=== PATIENT | female | born 1955 | race Caucasian/White ===

== ENCOUNTER 2017-06-03 11:52 | Day surgery (SDC) | payer BC ==
[2017-06-03] MEDS ORDERED: PROPOFOL 10 MG/ML VIAL IV ONE (11:53)
[2017-06-03] MEDS ORDERED: LIDOCAINE 2% MDV (20MG/ML) 20ML VIAL IV ONE (11:53)
--- NOTE | 2017-06-06 09:10 | Operative Note ---
DATE OF SURGERY: 06/03/2017 SURGEON: Dawna Venegas MD OPERATION: COLONOSCOPY. INDICATIONS: This is a 62-year-old female with history of colon polyps who presented for surveillance colonoscopy. POSTOPERATIVE DIAGNOSES: 1. Left-sided colonic diverticula. 2. Grade 1 internal hemorrhoids. ANESTHESIA: Sedation is per Anesthesia. Pulse oximetry was monitored throughout the procedure to maintain O2 saturation of 90% or greater. Supplemental oxygen was administered via nasal cannula. Cardiac and vital signs were monitored throughout the duration of the procedure, and they were stable. The procedure of colonoscopy and risks and alternatives of the procedure, including the risk of bleeding and perforation, among others, were explained to the patient who voiced understanding and agreed to have the procedure done. Physical examination was performed, and the patient was found stable for sedation. PROCEDURE: The patient was placed in the left lateral position. Sedation was initiated. A digital rectal exam was performed and showed some mild external hemorrhoids with no palpable rectal masses. An Olympus PCF-180AL colonoscope was then inserted into the rectum under direct visualization. It was advanced to the cecum without difficulty. The ileocecal valve and appendiceal orifice were identified and photographed. The colonic mucosa was carefully examined upon introduction of the colonoscope. There were scattered diverticula noted in the sigmoid and descending colon. There were no other lesions noted. The colonoscope was then withdrawn while carefully examining the colonic mucosal surfaces. No other lesions were noted. In the rectum, retroflexion was performed and grade 1 internal hemorrhoids were noted. The colonoscope was then withdrawn and the procedure was terminated. The patient tolerated the procedure well without any immediate complications. She remained with stable vital signs and was transferred to the recovery room. RECOMMENDATIONS: 1. The patient should be on a high-fiber diet. 2. The patient is to have a repeat colonoscopy for surveillance in 5 years. Thank you for allowing me to participate in the care of your patient. CC: Dr. Kassy NUGENT
== END 2017-06-03 14:24 | disposition home or self-care (01) ==
LOC: HOP 11:52
PROVIDERS: ATTEND Internal Medicine Gastroenterology
DX: Z12.11 Encounter for screening for malignant neoplasm of colon (principal); Z86.010 Personal history of colon polyps; K57.30 Diverticulosis of large intestine without perforation or abscess without bleeding; K64.0 First degree hemorrhoids; I10 Essential (primary) hypertension; J44.9 Chronic obstructive pulmonary disease, unspecified; E78.00 Pure hypercholesterolemia, unspecified
CPT/HCPCS: 00812; G0105

== ENCOUNTER 2018-03-06 13:30 | Inpatient (IN) | payer BC ==
[2018-03-16] MEDS ORDERED: CELECOXIB 100 MG CAPSULE PO ONE (06:00)
[2018-03-16] MEDS ORDERED: FAMOTIDINE 20MG TABLET PO ONE (06:00)
[2018-03-16] MEDS ORDERED: MECLIZINE 25 MG TABLET PO ONE (06:00)
[2018-03-16] MEDS ORDERED: ACETAMINOPHEN 1,000 MG/100 ML BTL IV ONE (06:00)
[2018-03-16] MEDS ORDERED: CEFAZOLIN 2 Gram 2 GM/50 ML BAG IVPB ONE (06:00)
[2018-03-16] MEDS ORDERED: METOCLOPRAMIDE 10 MG TABLET PO ONE (06:00)
[2018-03-16] MEDS ORDERED: OXYCODONE HCL/APAP 5MG/325MG TABLET PO PRN ×2 (12:56)
[2018-03-16] MEDS ORDERED: HYDROCODONE/APAP 5/325MG TABLET PO PRN (12:56)
[2018-03-16] MEDS ORDERED: SENNOSIDES/DOCUSATE SODIUM UD CAPSULE PO PRN (13:00)
[2018-03-16] MEDS ORDERED: ONDANSETRON HCL IV 4 MG/2 ML VIAL IVP PRN (13:00)
[2018-03-16] MEDS ORDERED: METOCLOPRAMIDE HCL 10 MG/2 ML VIAL IVP PRN (13:00)
[2018-03-16] MEDS ORDERED: HYDROMORPHONE HCL 2 MG/ML VIAL IV PRN (13:00)
[2018-03-16] MEDS ORDERED: DIPHENHYDRAMINE HCL 25 MG CAPSULE PO PRN (13:00)
[2018-03-16] MEDS ORDERED: TRAMADOL HCL 50 MG TABLET PO PRN ×2 (13:00)
[2018-03-16] MEDS ORDERED: AL HYDROX/MAG HYDROX 30ML UD PO PRN (13:00)
[2018-03-16] MEDS ORDERED: ZOLPIDEM TARTRATE 5 MG TABLET PO PRN (13:00)
[2018-03-16] MEDS ORDERED: MAGNESIUM HYDROXIDE 30 ML UDC PO PRN (13:00)
[2018-03-16] MEDS ORDERED: PATIENT OWN MED: PROAIR HFA INH PRN (13:04)
[2018-03-16] MEDS ORDERED: RINGERS SOLUTION,LACTATED 1,000 ML IV PRN (13:09)
[2018-03-16] MEDS: RINGERS SOLUTION,LACTATED 1,000 ML IV SCH ×2 (13:34→19:00)
[2018-03-16] MEDS ORDERED: HYDROMORPHONE HCL 2 MG/ML VIAL IV ONE (13:38)
[2018-03-16] MEDS ORDERED: PROPOFOL 10 MG/ML VIAL IV ONE (15:14)
[2018-03-16] MEDS ORDERED: SUGAMMADEX SODIUM 200 MG/2 ML VIAL IV ONE (15:14)
[2018-03-16] MEDS ORDERED: ROCURONIUM BROMIDE 50MG/5ML VIAL IV ONE (15:14)
[2018-03-16] MEDS ORDERED: FENTANYL PF 0.25MG/5ML AMPUL IV ONE (15:14)
[2018-03-16] MEDS ORDERED: KETOROLAC 30 MG/ML VIAL IVP ONE (15:14)
[2018-03-16] MEDS ORDERED: SEVOFLURANE 250 ML INH ONE (15:14)
[2018-03-16] MEDS ORDERED: ONDANSETRON HCL IV 4 MG/2 ML VIAL IVP ONE (15:14)
[2018-03-16] MEDS ORDERED: LIDOCAINE 2% MDV (20MG/ML) 20ML VIAL IV ONE (15:14)
[2018-03-16] MEDS ORDERED: MIDAZOLAM HCL 2MG/2ML VIAL IV ONE (15:14)
[2018-03-16] MEDS: DELZICOL PO SCH ×2 (16:35→22:07)
--- NOTE | 2018-03-16 17:20 | Rehab Evaluation ---
Patient Information - Patient Information Diagnosis: OA L hip Ordered Treatment: PT Evaluate and Treat Status: Initial Evaluation Surgery: Yes Date of Surgery: 03/16/18 History: Detail (Pt with gradual degeneration of L hip.) Past Medical/Surgical Hx: PAST MEDICAL/SURGICAL HISTORY Past Surgical History left breast bx benign RTHA appendectomy; tonsillectomy; right ankle orif; breast bx x 2; cardiac cath with stents. total left hip arthroplasty PMH - Respiratory Hx Respiratory Disorders Yes Hx Bronchitis Yes Hx Chronic Obstructive Yes: well controlled on inhalers Pulmonary Disease (COPD) Hx Dyspnea Yes: with weather change and exertion Hx Pneumonia Yes Hx of SOB Yes: " PMH - Cardiovascular Hx Cardiovascular Disorders Yes Hx Abnormal EKG Yes Hx Cardiac Catheterization Yes: with stents Hx Edema Yes: on diuretic Hx Heart Attack Yes: 2007 Hx Hypertension Yes: on meds good control Exercise Tolerance Good PMH - Neuro Hx Neurological Disorders No PMH - GI Hx Gastrointestinal Disorders Yes Hx Gastroesophageal Reflux Yes: occassionally uses gaviscon Hx Rectal Bleeding Yes Comment: colitis on meds good control on this PMH - Hx Genitourinary Disorders No Hx Age of Menopause 44 PMH - Endocrine Hx Endocrine Disorders No PMH - Musculoskeletal Hx Musculoskeletal Disorders Yes Hx Arthritis Yes: osteoarthritis left hip PMH - Psych Hx Psychiatric Problems No PMH - Hematology/Oncology Hx Hematology/Oncology Yes Disorders Hx Anemia Yes: borderline Social History: Detail (Pt lives in 2 story home with daughter. Pt has 3 steps to enter with no hand rails. Pt has a tub/shower with grab bars and a standard height toilet. Pt currently own RW and crutches.) Precautions: [place], Fall - Time With Patient Total Time Spent With Patient (Min): 40 Treatment Procedures: Detail (PT eval completed, bed mobility, transfers, gait, and pt education.) Subjective Information - Subjective Information Per Patient (Pt asleep upon arrival, but awakened easily and cooperative for therapy.) Objective Data - Pain Pain Present: Yes Pain Intensity: 4 Pain Scale Used: Numeric (1 - 10) - Mental Status Patient Orientation: Oriented x3 - Visual Perception Appears within normal limits for therapeutic activities - ROM Not within normal limits (Decreased L hip flexion ROM, within [place] precautions.) - Strength/Tone Not within normal limits (Decreased L hip flexion strength, grossly 3-/5.) - Coordination Appears within normal limits for therapeutic activities - Bed Mobility Needs Assist (Pt performed sup<>sit using sit-pivot technique, bed rails and min A for LE movement. Verbal cues given for technique.) - Transfers Needs Assist (Pt performed sit<>stand using RW with bed raised and min A for steadying and safety. Verbal cues given for L hip precautions and technique.) - Balance Balance Sitting: Good Balance Standing: Good - Sensation Intact (Intact for light touch) - Gait Detail (Pt amb 50' with RW and min A for steadying and safety. Pt amb with step- to pattern, decreased B step length, increased reliance on UEs, and decreased weight shift to LLE. Pt reported feeling lightheaded during ambulation, resolved with short standing rest break.) - Special Tests No Therapy Assessment - Therapy Assessment Detail (Pt's impairments are consistent with surgical procedure. Pt currently requiring assistance with transfers, bed mobility and ambulation. Pt educated on L hip precautions (no flexion past 90 degrees, no hip adduction, and no hip IR).) Patient Education - Patient Education Teaching Topic: Exercise/Activity, Precautions Response: Verbalize Understanding Teaching Method: Discussion Teaching Recipient: Patient Barriers To Learning: None Problem List - Problem List Physical Therapy Problem List: Detail (Impaired bed mobility, transfers and gait.) Goals - Goals Physical Therapy Goals: 1) Pt will perform bed mobility independently. 2) Pt will perform transfers with least restrictive assistive device, independent. 3 ) Pt will ambulate 100' with least restrictive assistive device, w/supervision. 4) Pt will ascend/descend 3 steps with 1 UE support and min A for safety. Prognosis - Prognosis Good Plan - Plan Physical Therapy Plan: Pt will be seen by PT 1-2 times tomorrow to address current impairments to facilitate safe return to home.
[2018-03-16] MEDS: CEFAZOLIN 2 Gram 2 GM/50 ML BAG IVPB SCH (18:19)
[2018-03-16] MEDS ORDERED: PATIENT OWN MED: ATORVASTATIN 80 MG PO SCH (22:00)
[2018-03-16] MEDS: ASPIRIN 325 MG TAB ENTERIC-COATED PO SCH (22:04)
[2018-03-16] MEDS: HYDROCODONE/APAP 5/325MG TABLET PO PRN (22:06)
[2018-03-16] MEDS: SYMBICORT INH SCH (22:08)
[2018-03-17] MEDS: CEFAZOLIN 2 Gram 2 GM/50 ML BAG IVPB SCH ×2 (01:56→09:53)
[2018-03-17] MEDS: HYDROCODONE/APAP 5/325MG TABLET PO PRN ×3 (04:16→13:17)
[2018-03-17 06:23] LABS: HEMATOCRIT 31.7 % (35.0-47.0); HEMOGLOBIN 10.1 gm/dl (11.6-16.0); MEAN CORPUSCULAR HGB CONC 31.9 g/dl (32-36); MEAN PLATELET VOLUME 9.5 fl (7.4-10.4); PLATELET COUNT 205 K/uL (130-400); RED BLOOD COUNT 2.71 M/uL (3.80-5.40); RED CELL DISTRIBUTION WIDTH 13.2 % (11.5-14.5); WHITE BLOOD COUNT W/O DIFF 7.1 K/uL (4.2-12.2)
[2018-03-17 06:29] LABS: MEAN CORPUSCULAR HEMOGLOBIN 37.2 pg (27-33)
[2018-03-17] MEDS ORDERED: TRANEXAMIC ACID 1,000 MG/10 ML ML IV ONE (09:08)
[2018-03-17] MEDS: DELZICOL PO SCH (09:30)
[2018-03-17] MEDS: ASPIRIN 325 MG TAB ENTERIC-COATED PO SCH (09:33)
[2018-03-17] MEDS: SYMBICORT INH SCH (09:36)
[2018-03-17] MEDS ORDERED: PATIENT OWN MED: METOPROLOL SUCCINATE 50 MG PO SCH (10:00)
[2018-03-17] MEDS ORDERED: PATIENT OWN MED: POTASSIUM 20 MEQ PO SCH (10:00)
[2018-03-17] MEDS ORDERED: CELECOXIB 100 MG CAPSULE PO SCH (10:00)
[2018-03-17] MEDS ORDERED: FUROSEMIDE 20 MG TABLET PO SCH (10:00)
--- NOTE | 2018-03-17 10:30 | Operative Note ---
DATE OF SURGERY: 03/16/2018 Surgeon: Michael Call DO PREOPERATIVE DIAGNOSIS: Primary osteoarthritis of the left hip. POSTOPERATIVE DIAGNOSIS: Primary osteoarthritis of the left hip. OPERATION: Left total hip arthroplasty. DESCRIPTION OF PROCEDURE: This 62-year-old female was taken to the operating room and placed in the supine position on the operating room table. General anesthetic was administered. She was then placed in the right lateral decubitus position bolstered perpendicular to the floor. The left hip was prepped with Hibiclens and draped in the usual sterile fashion. All scrub personnel wore personal isolation suits. A lateral hip incision was made dissecting down through the skin and subcutaneous tissue. Hemostasis was obtained with the electrocautery. The tensor was split in line with the skin incision. The gluteus darell also split to expose the short rotators. Self-retaining hip retractor was placed. We then dissected off the short rotators to expose the hip. We then placed Steinmann pin retractors, one superiorly and one posterosuperiorly and one posteroinferiorly for excellent exposure to the acetabulum. We made a damian on the greater trochanter, and this was measured to the proximal pin to determine the length of the hip. This was restored to anatomic length at the completion of the procedure. The hip was dislocated and the neck amputated. The cobra retractor was placed anteriorly. Osteophytes were removed from the anterior and inferior aspects of the hip. We then began reaming with a size 48 mm reamer reaming up to a 50 in 1 mm increments to the base of the condyloid notch. We then placed a size [address] at approximately 40-45 degrees of abduction and approximately 20 degrees of anteversion. Trial liner was subsequently placed. We then directed our attention to the proximal femur. A box osteotome was used to cut the proximal femur, and reamer was placed down the shaft and then using an alternating ream/broach technique, we started with a size 5 and then went up to a size 7 which as seen to be the appropriate size. I did not feel that I would be able to pass a size 8 broach in her femur. The calcar reamer was used after the size 6 broach was countersunk. We then trialed off the size 7 broach and first a 0 and subsequently a 2.5 mm head was used to restore anatomic length to the femur. She was then taken through range of motion and this was found to be satisfactory with flexion to 110 easily, internal rotation to about 70, wide abduction and external rotation with no instability being identified. The hip was then again dislocated and the trial components were removed. The wound copiously irrigated with pulse lavage and lactated Ringer's solution. An X3 liner was placed, 36 mm inside diameter. This was followed by the insertion of the femoral component and a 36 mm +2.5 Biolox head, and the hip was then again reduced and taken through range of motion and found to be stable. The wound was copiously irrigated with pulse lavage and lactated Ringer's solution. The capsule and short rotators were reapproximated to the posterior aspect of the greater trochanter through drill holes with #5 Ethibond suture. A drain was placed through a separate stab incision. The tensor and gluteus were closed with a #2 Vicryl, subcutaneous tissue closed with 0 Vicryl, and the skin was stapled. Sterile dressings were applied and the patient taken to the recovery room in satisfactory condition. GROSS PATHOLOGY: This patient demonstrated advanced osteoarthritis of the hip on the left with osteophytes present inferior which were removed as well as anteriorly. The femur had somewhat of a medial-lateral, anterior-posterior mismatch. I was afraid to put a size 8 femoral component in the femur for fear of fracture. The size 7 fit tightly and was felt to be satisfactory. FINAL COMPONENTS INSERTED: Елена size 7 collared Secur-Fit femur, a size 50 Trident cup, a 36 mm inside diameter X3 liner, and a 36 mm +2.5 Biolox head was used. CC: DO TIMA BlankD
--- NOTE | 2018-03-17 10:37 | Rehab Evaluation ---
Patient Information - Patient Information Diagnosis: OA L hip Ordered Treatment: OT Evaluate and Treat Status: Initial Evaluation Surgery: Yes Date of Surgery: 03/16/18 (left total hip arthroplasty) History: Detail (Pt with gradual degeneration of L hip.) Past Medical/Surgical Hx: PAST MEDICAL/SURGICAL HISTORY Past Surgical History left breast bx benign RTHA appendectomy; tonsillectomy; right ankle orif; breast bx x 2; cardiac cath with stents. total left hip arthroplasty PMH - Respiratory Hx Respiratory Disorders Yes Hx Bronchitis Yes Hx Chronic Obstructive Yes: well controlled on inhalers Pulmonary Disease (COPD) Hx Dyspnea Yes: with weather change and exertion Hx Pneumonia Yes Hx of SOB Yes: " PMH - Cardiovascular Hx Cardiovascular Disorders Yes Hx Abnormal EKG Yes Hx Cardiac Catheterization Yes: with stents Hx Edema Yes: on diuretic Hx Heart Attack Yes: 2007 Hx Hypertension Yes: on meds good control Exercise Tolerance Good PMH - Neuro Hx Neurological Disorders No PMH - GI Hx Gastrointestinal Disorders Yes Hx Gastroesophageal Reflux Yes: occassionally uses gaviscon Hx Rectal Bleeding Yes Comment: colitis on meds good control on this PMH - Hx Genitourinary Disorders No Hx Age of Menopause 44 PMH - Endocrine Hx Endocrine Disorders No PMH - Musculoskeletal Hx Musculoskeletal Disorders Yes Hx Arthritis Yes: osteoarthritis left hip PMH - Psych Hx Psychiatric Problems No PMH - Hematology/Oncology Hx Hematology/Oncology Yes Disorders Hx Anemia Yes: borderline Social History: Detail (Pt lives in 2 story home with daughter, son in law and their children. She stays on the main level. Pt has 3 steps to enter with no hand rails. Pt has a tub/shower combination with grab bars and a tub seat and a standard height toilet with a riser. Pt currently own a 2 wheeled walker, apron cleaner and crutches.) Precautions: [place], Fall, Other (total hip precautions) - Time With Patient Total Time Spent With Patient (Min): 40 Treatment Procedures: Detail (OT eval low complexity) Subjective Information - Subjective Information Per Patient Objective Data - Pain Pain Present: Yes (09/22) - Mental Status Patient Orientation: Oriented x3 - Visual Perception Appears within normal limits for therapeutic activities - ROM Within normal limits (Rusty UE AROM WNL) - Strength/Tone Within normal limits (Rusty UE strength WNL) - Coordination Appears within normal limits for therapeutic activities - Transfers Independent (Ind with sit to stand from chair.) - Balance Balance Sitting: Good Balance Standing: Good - Sensation Intact - ADL's/IADL's Detail (Pt educated and demonstrated learning of modified LE dressing techniques using apron cleaner while maintaining total hip precautions. Pt able to doff briefs and slipper socks and don underwear, sweatpants and slip on shoes using apron cleaner. She reports she does not usually wear socks. Reviewed kitchen and shower safety and modifications, pt verbalized learning.) Therapy Assessment - Therapy Assessment Detail (Pt is safe and Ind with use of apron cleaner for LE dressing using modified techniques while maintaining total hip precautions.) Problem List - Problem List Physical Therapy Problem List: Detail (Impaired bed mobility, transfers and gait.) Occupational Therapy Problem List: Detail (No current IP OT problems identified. ) Goals - Goals Physical Therapy Goals: 1) Pt will perform bed mobility independently. 2) Pt will perform transfers with least restrictive assistive device, independent. 3 ) Pt will ambulate 100' with least restrictive assistive device, w/supervision. 4) Pt will ascend/descend 3 steps with 1 UE support and min A for safety. Occupational Therapy Goals: No current IP OT goals identified. Prognosis - Prognosis Good Plan - Plan Physical Therapy Plan: Pt will be seen by PT 1-2 times tomorrow to address current impairments to facilitate safe return to home. Occupational Therapy Plan: No further IP OT recommended. Thank you for this referral.
--- NOTE | 2018-03-17 11:05 | Physical Therapy Tx Note ---
Physical Therapy Tx Note - Treatment Note Tolerated: Good Total Time Spent With Patient: 25 Physical Therapy Tx Note: Detail (The patient was independent with supine to and from sit transfer without use of trapeze. The patient was independent with sit to and from stand transfer. The patient ambulated with wheeled walker a distance of independently WBAT on the L LE a distance of 60 feet, distance was limited due to pain complaints. The patient ambulated on 3 steps using proper technique for safety with use of railing and cane with supervision for safety only. The patient was independent with HEP of THR exercises including supine heelslides, hip abduction, ankle pumps, quad sets, hamstring sets, gluteal sets. The patient has met all inpatient PT goals.) Physical Therapy Problem List: Detail (Impaired bed mobility, transfers and gait.) Physical Therapy Goals: 1) Pt will perform bed mobility independently.( Goal Met ). 2) Pt will perform transfers with least restrictive assistive device, independent. (Goal Met). 3) Pt will ambulate 100' with least restrictive assistive device, w/supervision. (Goal Met with distance of 60 feet). 4) Pt will ascend/descend 3 steps with 1 UE support and min A for safety. (Goal Met) Physical Therapy Plan: All inpatient PT goals have been met. The patient is discharged form inpatient PT.
[2018-03-17] MEDS ORDERED: ACETAMINOPHEN 325 MG TAB PO PRN (13:00)
--- NOTE | 2018-03-20 11:40 | Discharge Summary ---
DATE OF ADMISSION: 03/16/2018 DATE OF DISCHARGE: 03/17/2018 ADMITTING DIAGNOSIS: Osteoarthritis of the right knee. DISCHARGE DIAGNOSIS: Osteoarthritis of the right knee. OPERATIVE PROCEDURE: Elective right total knee arthroplasty. DESCRIPTION. This 61-year-old female was admitted to the hospital for elective total knee arthroplasty. Tolerated the operative procedure well. Progressed satisfactorily with physical therapy and was cleared the first postoperative day. Drain was also removed the first postoperative day. She did not show any evidence of complication. No shortness of breath, chest pain, or evidence of DVT. The patient will be discharged with routine wound care instructions. She is to wear her BRO hose during the day and remove them at night. She will have outpatient physical therapy. She is to take [place] 5/325 mg, #60, 1 every 4 hours as necessary for pain and aspirin 325 mg daily for 2 weeks. She will follow up in my office in 2 weeks for reevaluation. Should she have any problems prior to being seen, she was instructed to call my office. RAFFI
== END 2018-03-17 13:30 | disposition home or self-care (01) | DRG 470 ==
LOC: MEDSURG 03-16 09:02 → UNDOADMIN 03-16 09:02 → MEDSURG 03-16 12:33
PROVIDERS: ADMIT Orthopaedic Surgery; ATTEND Orthopaedic Surgery
PROC: 0SRB06A Replacement of Left Hip Joint with Oxidized Zirconium on Polyethylene Synthetic Substitute, Uncemented, Open Approach (ICD-10-PCS; principal; 2018-03-16 11:00)
DX: M16.12 Unilateral primary osteoarthritis, left hip (principal); I10 Essential (primary) hypertension; J44.9 Chronic obstructive pulmonary disease, unspecified; I25.2 Old myocardial infarction; K52.9 Noninfective gastroenteritis and colitis, unspecified; Z95.5 Presence of coronary angioplasty implant and graft
CPT/HCPCS: 85025; 97110; 97530; C1776; J1885; J2405; J3490; J7120